=== PATIENT | male | born 1940 | race Caucasian/White ===

== ENCOUNTER 2016-09-19 09:08 | Emergency (ER) | payer MEDICARE ==
[~2016-09-19] VITALS: Ht 177.8 cm; Wt 82.9 kg
[~2016-09-19 09:08] MED LIST: ALOG12.52 PO; ASPI81TA82 PO; GLUC1000 PO; LIPI10TA PO; PLAV75TA PO; RAPID FLOW PO; VESI5TAB PO
[2016-09-19 09:14] VITALS: BP 177/79; PULSE 80; RESP 16; TEMP 98.2; O2SAT 100
[2016-09-19] MEDS ORDERED: PLAV75TA29 PO (09:30)
[2016-09-19] MEDS ORDERED: ASPI81TA11 PO (09:30)
[2016-09-19] MEDS ORDERED: GLIM4TAB PO (09:30)
[2016-09-19] MEDS ORDERED: METF500T4 PO (09:30)
[2016-09-19] MEDS ORDERED: traMADol HCL 50 MG TAB PO ONE (09:45)
[2016-09-19] MEDS ORDERED: ACETAMINOPHEN 325 MG TAB PO ONE (10:00)
--- NOTE | 2016-09-19 10:34 | PD ---
HPI Chief Complaint: Fall Time Seen by Provider: 09:20 Travel History International Travel<30 days: No Contact w/Intl Traveler<30days: No Traveled to known affect area: No History of Present Illness HPI Patient is a 75-year-old male who comes in complaining of right shoulder pain after a fall this morning. He says he slipped on some water that was on the floor around 6 AM and landed on his right shoulder. He denies hitting his head or losing consciousness. He says he only has pain to his right shoulder, going into the top of his right chest. He denies any shortness of breath. He was in his normal state of health prior to the fall. He was able to get up and walk after the fall. He says he has some pain to his right hip. He has not taken anything for pain yet. 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 Eye Surgery: Yes (CATARACT SURGERY 11/19/14) Pacemaker: No Other Surgery: Yes Social History Alcohol Use: No Tobacco Use: No Substance Use: No Allergies-Medications (Allergen,Severity, Reaction): Coded Allergies: No Known Allergies (Unverified , 09/19/16) Reported Meds & Prescriptions Reported Meds & Active Scripts Active Reported Glimepiride 4 Mg Tab 4 Mg PO DAILY Take with breakfast or first main meal Metformin ER (Metformin HCl) 500 Mg Tripp 500 Mg PO BID With evening meal Plavix (Clopidogrel Bisulfate) 75 Mg Tab 75 Mg PO DAILY Aspirin EC (Aspirin) 81 Mg Tabdr 81 Mg PO DAILY Review of Systems General / Constitutional: No: Fever, Chills Eyes: No: Blurred Vision HENT: No: Headaches, Lightheadedness Respiratory: No: Shortness of Breath Gastrointestinal: No: Nausea, Vomiting, Abdominal Pain Musculoskeletal: Positive: Limited ROM, Pain Skin: No Rash, No Change in Pigmentation Neurologic: No: Weakness, Dizziness Physical Exam Narrative GENERAL: Awake and alert in no acute distress. SKIN: Warm and dry. No ecchymosis HEAD: Atraumatic. Normocephalic. EYES: Pupils equal and round. No scleral icterus. Extraocular movements intact. ENT: Mucous membranes pink and moist. NECK: Trachea midline. No JVD. CARDIOVASCULAR: Regular rate and rhythm. No murmur appreciated. Mild tenderness to the right upper ribs on palpation. RESPIRATORY: No accessory muscle use. Clear to auscultation. Breath sounds equal bilaterally. MUSCULOSKELETAL: No obvious deformities. No clubbing. No cyanosis. No edema. Tender to palpation of right distal clavicle. Pain with abduction of the right shoulder. Radial pulse intact. No tenderness to palpation of the pelvis. NEUROLOGICAL: Awake and alert. No obvious cranial nerve deficits. Motor grossly within normal limits. Normal speech. Data Data Last Documented VS Vital Signs Date Time Temp Pulse Resp B/P Pulse Ox O2 Delivery O2 Flow Rate FiO2 09/19/16 09:14 98.2 80 16 177/79 100 Orders Shoulder, Complete (>2vws) (09/19/16 ) Pelvis, Ap Only (Routine) (09/19/16 ) Chest, Single Ap (09/19/16 ) Tramadol (Ultram) (09/19/16 09:45) Acetaminophen (Tylenol) (09/19/16 10:00) MDM Medical Decision Making Medical Screen Exam Complete: Yes Emergency Medical Condition: Yes Medical Record Reviewed: Yes Differential Diagnosis Shoulder sprain versus clavicular fracture versus rib fracture versus humeral fracture versus dislocation Narrative Course Patient is a 75-year-old male comes in after a slip and fall today complaining of right shoulder pain. Exam shows tenderness along the right clavicle. Patient is able to fully range the right shoulder, but has some pain with this movement. X-rays of the shoulder, chest and pelvis performed show no acute findings. Patient given Tylenol for pain after refusing tramadol. Patient advised to ice his shoulder at home, take Tylenol or ibuprofen as needed. He is advised to make sure he ranges his shoulder often to prevent frozen shoulder. Will be discharged home to follow-up with his doctor. Diagnosis Primary Impression: Shoulder sprain Qualified Code: S43.401A - Sprain of right shoulder, unspecified shoulder sprain type, initial encounter Patient Instructions: General Instructions, Shoulder Sprain (ED) Additional Instructions: Follow up with your doctor. Apply ice to your shoulder for 20 minutes at a time several times in a day. Take Tylenol or Ibuprofen as needed for pain relief. Make sure you move your shoulder in order to prevent frozen shoulder. Return to the ED as needed for any worsening symptoms. Disposition: 01 DISCHARGE HOME Condition: Stable Desiree Navarro MD Sep 19, 2016 10:34
--- NOTE | 2016-09-19 10:43 | RADHPO ---
EXAM DATE/TIME: 09/19/2016 10:01 [facility] COMPARISON: No previous studies available for comparison. INDICATIONS : Fall, has pain MEDICAL HISTORY : Diabetes mellitus type II. SURGICAL HISTORY : CABG. ENCOUNTER: Initial ACUITY: 1 day PAIN SCORE: 10/10 LOCATION: Right shoulder FINDINGS: Multiple view examination of the right shoulder demonstrates no evidence of fracture or dislocation. The glenohumeral and acromioclavicular joints are maintained. There is normal range of motion betwe en internal and external rotation. Bony mineralization is normal. CONCLUSION: Negative for acute fracture. CT scan may be more sensitive in this osteoporotic shou lder. Galen Echols MD FACR on September 19, 2016 at 10:41 Board Certified Radiologist. This report was verified electronically.
--- NOTE | 2016-09-19 10:44 | RADHPO ---
EXAM DATE/TIME: 09/19/2016 10:06 [facility] COMPARISON: No previous studies available for comparison. INDICATIONS : Pelvic pain from fall MEDICAL HISTORY : Diabetes mellitus type II. SURGICAL HISTORY : CABG. ENCOUNTER: Initial ACUITY: 1 day PAIN SCORE: 2/10 LOCATION: Right pelvis FINDINGS: A single frontal view of the pelvis demonstrates no evidence of fracture. The bony pelvic ring is in tact. Bony mineralization is normal. The soft tissues are intact.CONCLUSION: Negative or fractu re. Galen Echols MD FACR on September 19, 2016 at 10:42 Board Certified Radiologist. This report was verified electronically.
--- NOTE | 2016-09-19 10:47 | RADHPO ---
EXAM DATE/TIME: 09/19/2016 09:57 [facility] COMPARISON: CHEST SINGLE AP, December 02, 2014, 18:58. INDICATIONS : Fell, right upper chest pains MEDICAL HISTORY : None. SURGICAL HISTORY : CABG. ENCOUNTER: Initial ACUITY: 1 day PAIN SCORE: 10/10 LOCATION: Right upper chest FINDINGS: Sternal wires from previous median sternotomy are noted. Heart and pulmonary vascularity are normal. Portion of bony skeleton visualized is unremarkable. CONCLUSION: 1. Negative chest for acute disease. 2. Sternal wires from previous bypass are noted. Galen Echols MD FACR on September 19, 2016 at 10:41 Board Certified Radiologist. This report was verified electronically.
== END 2016-09-19 11:13 | disposition home or self-care (01) ==
LOC: PHED 09:08
DX: S43.401A Unspecified sprain of right shoulder joint, initial encounter (principal); M25.551 Pain in right hip; I10 Essential (primary) hypertension; E11.9 Type 2 diabetes mellitus without complications; E78.00 Pure hypercholesterolemia, unspecified; Z79.01 Long term (current) use of anticoagulants; W01.0XXA Fall on same level from slipping, tripping and stumbling without subsequent striking against object, initial encounter; Y93.01 Activity, walking, marching and hiking; Y92.009 Unspecified place in unspecified non-institutional (private) residence as the place of occurrence of the external cause
CPT/HCPCS: 71010; 72170; 73030; 99284